=== PATIENT | female | born 1955 | race Two or more races ===

== ENCOUNTER 2021-07-23 17:15 | Emergency (ER) | payer BC, OTHER ==
[~2021-07-23] VITALS: Ht 149.9 cm; Wt 59.0 kg
[2021-07-23] MEDS ORDERED: IBUPROFEN 600 MG TAB PO ONE (19:15)
[2021-07-23 19:45] VITALS: BP 168/95
== END 2021-07-23 22:12 | disposition home or self-care (01) ==
LOC: ER 17:15
DX: M25.531 Pain in right wrist (principal); Z88.6 Allergy status to analgesic agent; W23.0XXA Caught, crushed, jammed, or pinched between moving objects, initial encounter; Y93.89 Activity, other specified; Y92.89 Other specified places as the place of occurrence of the external cause; Y99.8 Other external cause status
CPT/HCPCS: 29125; 73110

== ENCOUNTER 2022-12-29 11:13 | Emergency (ER) | payer BC, OTHER ==
[~2022-12-29] VITALS: Ht 152.4 cm; Wt 56.1 kg
[2022-12-29 11:45] VITALS: BP 155/105; PULSE 81; RESP 18; TEMP 99.3; O2SAT 97
== END 2022-12-29 12:40 | disposition home or self-care (01) ==
LOC: ER 11:13
DX: H61.21 Impacted cerumen, right ear (principal); Z88.6 Allergy status to analgesic agent
CPT/HCPCS: 69209

== ENCOUNTER 2024-12-22 09:16 | Emergency (ER) | payer MEDICARE ==
[~2024-12-22] VITALS: Ht 149.9 cm; Wt 63.8 kg
--- NOTE | 2024-12-22 10:18 | ED.PDOC ---
HPI Allergic reaction HPI Comments 69 y/o F, presents to the ED for CC of allergic reaction. Patient c/o tongue swelling sudden onset, yesterday morning (12/21/24). Patient reports, that she has been out of her hypertensive medications (Metoprolol and Hydrochlorothiazide). At this time patient is hypertensive, with a blood pressure of 191/100mmHg. Patient denies throat pain, throat swelling, shortness of breath, rash, or pruritus. No other symptoms or modifying factors are present at this time. Chief Complaint: Allergic Reaction Time Seen by MD: 09:50 Primary Care Provider: NORA Cohen Notes: Nurses Notes, Medications, Allergies Allergies: Coded Allergies: Codeine (Verified Allergy, Mild, 07/23/21) Information Source: Patient Mode of Arrival: Ambulatory Severity: Moderate Rash: None SOB: None Difficulty swallowing: Mild Pruritus: None Timing: Days Duration: Since onset Prehospital treatment: None Location: Tongue Exposed to: Unknown Developed: Other (tongue swelling) Modyifying Factors: None Associated Sign and Symptoms: None Past Medical History PAST MEDICAL HISTORY: Denies Surgical History: Denies all surgeries [employer] History: No Pertinent [employer] History Family History Family History: Reviewed,noncontributory to illness Social History Smoker: Non-Smoker Alcohol: Denies ETOH Use Drugs: Denies Drug Use Lives In: Home Constitutional: denies: chills, diaphoresis, fatigue, fever, malaise, sweats, weakness, others EENTM: reports: others (mouth pain, swollen tongue); denies: blurred vision, double vision, ear bleeding, ear discharge, ear drainage, ear pain, ear ringing, eye pain, eye redness, hearing loss, mouth pain, mouth swelling, nasal discharg e, nose bleeding, nose congestion, nose pain, photophobia, tearing, throat pain, throat swelling, voice changes Respiratory: denies: cough, hemoptysis, orthopnea, SOB at rest, shortness of breath, SOB with excertion, stridor, wheezing, others Cardiovascular: denies: chest pain, dizzy spells, diaphoresis, Dyspnea on exertion, edema, irregular heart beat, left arm pain, lightheadedness, palpitations, PND, syncope, others Gastrointestinal: denies: abdomen distended, abdominal pain, blood streaked bowels, constipated, diarrhea, dysphagia, difficulty swallowing, hematemesis, melena, nausea, poor appetite, poor fluid intake, rectal bleeding, rectal pain, vomiting, others Genitourinary: denies: abnormal vagina bleeding, burning, dyspareunia, dysuria, flank pain, frequency, hematuria, incontinence, pain, , vagina discharge, urgency, others Neurological: denies: dizziness, fainting, headache, left sided numbness, left sided weakness, numbness, paresthesia, pre-existing deficit, right sided numbness, right sided weakness, seizure, speech problems, tingling, tremors, weakness, others Musculoskeletal: denies: back pain, gout, joint pain, joint swelling, muscle pain, muscle stiffness, neck pain, others Integumetry: denies: bruises, change in color, change in hair/nails, dryness, laceration, lesions, lumps, rash, wounds, others Allergic/Immunocompromised: denies: Difficulty Healing, Frequent Infections, Hives, Itching, others Hematologic/Lymphatic: denies: anemia, blood clots, easy bleeding, easy bruising, swollen glands, others Endocrine: denies: excessive hunger, excessive sweating, excessive thirst, excessive urination, flushing, intolerance to cold, intolerance to heat, une xplained weight gain, unexplained weight loss, others Psychiatric: denies: anxiety, bipolar disorder, depression, hopeless, panic disorder, schizophrenia, sleepless, suicidal, others All Other Systems: Reviewed and Negative Physical Exam General Appearance: Moderate Distress HEENT: Other (Tongue swollen) Neck: Full Range of Motion, Non-Tender, Normal, Normal Inspection Respiratory: Chest Non-Tender, Lungs Clear, No Accessory Muscle Use, No Respiratory Distress, Normal Breath Sounds Cardiovascular: No Edema, No JVD, No Murmur, No Gallop, Normal Peripheral Pulses, Regular Rate/Rhythm Breast Exam: Deferred Gastrointestinal: No Organomegaly, Non Tender, No Pulsatile Mass, Normal Bowel Sounds, Soft Genitalia: Deferred Pelvic: Deferred Rectal: Deferred Extremities: No calf tenderness, Normal capillary refill, Normal inspection, Normal range of motion, Non-tender, No pedal edema Musculoskeletal : Apperance: Normal Neurologic: Alert, curtain cutter hand II-XII nml as Tested, No Motor Deficits, Normal Affect, Normal Mood, No Sensory Deficits Cerebellar Function: Normal Reflexes: Normal Skin: Dry, Normal Color, Warm Peripheral Pulses: 3+ Radial (R), 3+ Radial (L) Lymphatic: No Adenopathy Was a procedure done? Was a procedure done?: No Differential diagnosis (all) Differential Diagnosis: Anaphylaxis, Angioedema, Drug Reaction X-Ray, Labs, Meds, VS Vital Signs Date Time Temp Pulse Resp B/P (MAP) Pulse Ox O2 Delivery O2 Flow Rate FiO2 12/22/24 12:49 136/68 12/22/24 12:35 Room Air* 0 21 12/22/24 12:35 99.3 78 16 136/68 (90) 99 99.3 12/22/24 11:17 183/88 12/22/24 10:34 211/91 12/22/24 09:19 98.6 82 16 191/100 96 98.6 Current Medications Medications (Trade) Dose Ordered Sig/Carlos Route Start Time Stop Time Status Last Admin Clonidine HCl (Catapres Tablet) 0.2 mg ONCE ONCE PO 12/22/24 10:30 12/22/24 10:31 DC 12/22/24 10:34 Epinephrine HCl 0.3 mg ONCE ONCE SC 12/22/24 10:45 12/22/24 10:46 DC 12/22/24 11:17 Methylprednisolone Sodium Succinate (Solu Medrol) 125 mg ONCE ONCE IM 12/22/24 10:45 12/22/24 10:46 DC 12/22/24 11:17 Patient alert. Came in because of tongue swelling. Blood pressure elevated pain Was given clonidine. Pressure continues to be elevated. Was given Norvasc. Completing sentences. No shortness a breath. No leg swelling. Explained to the patient. Was told to follow up with her primary care physician. Was told to come back if there is any problem. Time of 1ST Reevaluation: 10:20 Reevaluation 1ST: Unchanged Patient Education/Counseling: Diagnosis, Treatment Family Education/Counseling: No Family Present SEPSIS Sepsis Screen Date sepsis recognized/suspect: Dec 22, 2024 Time Sepsis recognized/suspect: 918 Recent Procedure: No On Antibiotic Therapy: No Respiratory Rate >20: No Heart Rate >90: No Temp<36 C (96.8 F) or >38.3 C: No SBP <90 or MAP <65 mmHG: No New Acute Mental Status Change: No Is the patient on CPAP, BIPAP,: No Vital Signs Date Time Temp Pulse Resp B/P (MAP) Pulse Ox O2 Delivery O2 Flow Rate FiO2 12/22/24 12:49 136/68 12/22/24 12:35 Room Air* 0 21 12/22/24 12:35 99.3 78 16 136/68 (90) 99 99.3 12/22/24 11:17 183/88 12/22/24 10:34 211/91 12/22/24 09:19 98.6 82 16 191/100 96 98.6 Medications Medications Dose Ordered Sig/Carlos Route Start Time Stop Time Status Last Admin Dose Admin Clonidine HCl 0.2 mg ONCE ONCE PO 12/22/24 10:30 12/22/24 10:31 DC 12/22/24 10:34 Epinephrine HCl 0.3 mg ONCE ONCE SC 12/22/24 10:45 12/22/24 10:46 DC 12/22/24 11:17 Methylprednisolone Sodium Succinate 125 mg ONCE ONCE IM 12/22/24 10:45 12/22/24 10:46 DC 12/22/24 11:17 Departure 1 Departure Time of Disposition: 12:15 Impression: Primary Impression: Hypertensive emergency Additional Impression: Allergic reaction Qualified Codes: T78.40XA - Allergy, unspecified, initial encounter Disposition: HOME / SELF CARE / HOMELESS Condition: Good e-Prescriptions Prednisone (Prednisone) 10 Mg Tab 10 MG PO DAILY for 5 Days, #5 MG Prov: SANTIAGO DUNN MD 12/22/24 Discharged With: Self Critical Care Note Critical Care Time?: No Stability Stability form required: No Heart Score Heart Score: Heart Score Response (Comments) Value History N/A 0 EKG N/A 0 Age N/A 0 Risk Factors N/A 0 Troponin N/A 0 Total 0 I personally scribed for SANTIAGO DUNN MD ([email or web address]) on 12/22/24 at 10:18. Electronically submitted by Nisa Kirk ([email or web address]). I personally scribed for SANTIAGO DUNN MD ([email or web address]) on 12/22/24 at 10:30. Electronically submitted by Nisa Kirk ([email or web address]). SANTIAGO DUNN MD Dec 22, 2024 10:18
[2024-12-22] MEDS: methylPREDNISolone SOD SUCC 125 MG/2 ML VL IM ONE (11:17)
[2024-12-22] MEDS ORDERED: methylPREDNISolone SOD SUCC 125 MG/2 ML VL ONE (11:17)
[2024-12-22] MEDS ORDERED: PRED10TA PO (14:36)
[2024-12-22 15:11] VITALS: BP 155/90; PULSE 93; RESP 15; TEMP 98.8; O2SAT 98
== END 2024-12-22 15:09 | disposition home or self-care (01) ==
LOC: ER 09:16
DX: T78.40XA Allergy, unspecified, initial encounter (principal); I16.1 Hypertensive emergency; Z88.5 Allergy status to narcotic agent; X58.XXXA Exposure to other specified factors, initial encounter
CPT/HCPCS: 96372; 99285; J0169; J2919